=== PATIENT | female | born 1985 | race Caucasian/White ===

== ENCOUNTER 2018-05-22 09:31 | Observation (INO) ==
--- NOTE | 2018-05-22 09:50 | Emergency Department Note ---
Disposition Clinical Impression: Chest pain Qualifiers: Chest pain type: unspecified Qualified Code(s): R07.9 - Chest pain, unspecified Disposition: Admitted As Inpatient Condition: Good Referrals: Krystle Napoles FORENSIC ENGINEER [Advanced Practice Nurse] - Forms: ED Satisfaction Letter Time of Disposition: 12:29 Chest Pain HPI - General Chief Complaint: ED Chest Pain Stated Complaint: Chest Pain Time Seen by Provider: 05/22/18 09:38 Source: patient Mode of arrival: private vehicle Limitations: no limitations Vital Signs Reviewed: Yes Nursing Notes Reviewed: Yes - History of Present Illness HPI Narrative: Patient is a 32-year-old female with no notable past medical history taking no medications who comes in today after 1-1/2 months of chest pain that is substernal in nature with radiation to her left arm described as a tightness or a pressure with it is worse with movement and improves with rest and is an 8 out of 10 in severity. She states that she had a stress test yesterday which did not show any significant issues or change her EKG anyway. She is followed by cardiology because of her strong family history of normal testing and then subsequent heart catheterization showing blockages. She states that her grandmother and her mother has had very similar stories where they had chest pain which resulted in normal tests but then had abnormal catheterizations. She is not a smoker, she does not drink, and denies illicit drugs. She states that the last time her cholesterol was checked she thinks it was normal, she does not take any oral control and she does not have diabetes. Her surgical history is notable for a double hip repair when she was an for hip dysplasia, cholecystectomy, bilateral tubal ligation, exploratory laparotomy for abnormal uterine bleeding, uterine ablation, double hernia repair , several D&Cs, colonoscopy, and EGD. She has a strong family history of sudden cardiac from [place] with the youngest in her family being 30 years old when this happened, she also reports a family history of strokes, but no family history of bleeding disorders that she knows of. Recent testing includes 48 hour Holter monitor which did not show any arrhythmias, stress test which did not show any arrhythmias or signs of ischemia, echocardiogram which did not show any wall or valve abnormalities. She states that her panel flow machine operator has told her that she needs to go through all of these tests before she would be eligible for a heart catheterization. Additionally she reports that while she can normally get her chest pain to mary with rest, since she finished her stress test yesterday she has been unable to relieve her chest pain with rest, although she has not tried any [id number] remedies. Severity scale (1-10): 9 - Related Data Home Medications Medication Instructions Recorded Confirmed Buspirone HCl [Buspar] 10 mg PO BID 01/09/18 03/03/18 Sertraline [Zoloft] 50 mg PO DAILY 01/09/18 03/03/18 Previous Rx's Medication Instructions Recorded Ketorolac [Toradol] 10 mg PO Q6HR PRN #20 tablet 01/09/18 Oxycodone HCl/Acetaminophen 1 each PO Q6H PRN 7 Days #28 tablet 01/09/18 [Percocet 5-325 mg Tablet] Allergies Allergy/AdvReac Type Severity Reaction Status Date / Time No Known Allergies Allergy Verified 03/03/18 09:49 All systems ED: reviewed and negative except as stated. Review of Systems: As Per HPI Constitutional: Denies: fever, chills ENT ED: Denies: ear pain, throat pain Cardiovascular: Reports: chest pain, dyspnea on exertion, orthopnea. Denies: palpitations Respiratory: Reports: dyspnea. Denies: cough, wheezes, hemoptysis Gastrointestinal: Denies: abdominal pain, nausea, vomiting, diarrhea Genitourinary: Denies: urgency, dysuria Musculoskeletal: Denies: back pain Neurological: Denies: headache, weakness Chest Pain PMH - Past Medical History Medical history: Reports: asthma, other Surgical history: Reports: cholecystectomy, other Psychiatric history: Reports: anxiety SLEEPING BAG FILLER history: Reports: no SLEEPING BAG FILLER history, bilateral tubal ligation, other - Social History Smoking Status: Current every day smoker Alcohol use: Reports: none Drug use: Reports: none Physical Exam - General Limitations: no limitations General appearance: alert, in no apparent distress - Head Head exam: atraumatic, normocephalic - Eye Eye exam: Present: normal appearance, PERRL - ENT ENT exam: normal exam, normal oropharynx, mucous membranes moist - Neck Neck exam: Present: normal inspection, full ROM - Chest Chest inspection: Present: normal inspection, symmetric chest wall rise, tenderness (to palpation, sternal) - Respiratory Respiratory exam: Present: normal lung sounds bilaterally. Absent: respiratory distress, wheezes - Cardiovascular Cardiovascular exam: Present: regular rate, normal rhythm - Expanded Cardiovascular Exam Peripheral pulses: 2+: radial (R), radial (L), dorsalis pedis (R), dorsalis pedis (L) - Abdominal Exam Abdominal exam: Present: soft, Non-Tender - Back Exam Back exam: Present: normal inspection, full ROM - Neurological Exam Neurological exam: Present: alert, oriented X3 - Psychiatric Psychiatric exam: Present: normal affect, normal mood - Skin Skin exam: Present: warm, dry, intact Course Course Narrative: Pt will have a chest pain workup to include CXR, CBC, BMP, Mg, Phosphorus, troponin, EKG, 325 mg ASA, and SL nitro. Will consult cardiology for further management. - Reevaluation(s) Reevaluation #1: Pt's chest pain resolved after 3 nitroglycerin. Time: 12:27 Vital Signs Temperature 99.0 F 05/22/18 09:39 Pulse Rate 83 05/22/18 09:39 Respiratory Rate 18 05/22/18 09:39 Blood Pressure 147/87 05/22/18 09:39 O2 Sat by Pulse Oximetry 97 05/22/18 09:39 Temperature 99.0 F 05/22/18 09:46 Pulse Rate 87 05/22/18 11:13 Respiratory Rate 18 05/22/18 11:13 Blood Pressure 117/85 05/22/18 11:13 O2 Sat by Pulse Oximetry 99 05/22/18 11:13 Oxygen Delivery Oxygen Delivery Room Air Chest Pain - MDM Narrative Medical decision making narrative: Patient's chest x-ray failed to demonstrate acute cardiopulmonary process, EKG was normal, and troponin was negative. However given family history of fatal heart attack at 32, as well as mother's history of negative workup and then 99% occlusion on catheterization, as well as the fact that the patient is are not established with cardiology and they stated that the next step would be catheterization, the patient will need to be admitted. Cardiology has accepted the patient. I explained my findings to the patient, and I explained that I was worried about discharging her without having a catheterization, patient stated her understanding and agreement with the plan. Patient was given an opportunity to ask questions and all of her concerns were addressed. - Medical Records Medical records reviewed: Yes I reviewed the patient's medical records. - Lab Data Lab results reviewed: Yes I reviewed the patient's lab results. Result diagrams: 05/22/18 10:46 05/22/18 10:46 Lab Results 05/22/18 05/22/18 Range/Units 10:46 10:46 WBC 7.4 (4.3-11.1) K/mcL RBC 4.81 (3.82-4.97) M/mcL Hgb 14.0 (11.5-15.4) g/dL Hct 42.5 (35.3-44.9) % MCV 88.4 (83.0-100.0) fL MCH 29.1 (28.0-33.3) pg MCHC 32.9 (31.6-35.5) g/dL RDW 13.0 (11.5-14.5) % Plt Count 260 (140-400) K/mcL MPV 10.0 (9.4-12.4) fL Immature Gran % 0.4 (0-4) % Seg Neutrophils % 57.4 % Lymphocytes % 31.5 % Monocytes % 8.9 % Eosinophils % 1.1 % Basophils % 0.7 % Neutrophils # 4.3 (1.6-8.9) K/mcL Lymphocytes # 2.3 (0.6-4.6) K/mcL Monocytes # 0.7 (0.0-1.3) K/mcL Eosinophils # 0.1 (0.0-0.6) K/mcL Basophils # 0.1 (0.0-0.2) K/mcL Sodium 136 (136-145) mEq/L Potassium 4.2 (3.5-5.1) mEq/L Chloride 107 (98-107) mEq/L Carbon Dioxide 21 L (23-29) mEq/L BUN 14 (6-20) mg/dL Creatinine 0.68 (0.60-1.20) mg/dL Est GFR ( Amer) > 60 (> 60) Est GFR (Non-Af Amer) > 60 (> 60) BUN/Creatinine Ratio 21 (6-26) Glucose 97 (70-105) mg/dL Calculated Osmolality 282 (280-300) Calcium 9.3 (8.6-10.3) mg/dL Troponin I < 0.03 (< 0.04) ng/mL - Radiology Data Radiology results reviewed: Yes I reviewed the patient's radiology results. Chest X-Ray 05/22/18 10:16 IMPRESSION: No acute cardiopulmonary disease. D/ / Kimberly Grijalva MD / Kimberly Grijalva MD Interpreting Provider: Kimberly Grijalva MD - EKG Data EKG attestation: Yes I reviewed and interpreted this EKG. EKG results narrative: HR 88, Rhythm sinus, axis normal. NV 139, QRS 89, QTc 414. No evidence of ST elevation or depression. Heart Score - Score History: Moderately Suspicious EKG: Normal Age: Less than 45 Risk Factors: 1-2 risk factors Troponin: Less than normal limit HEART Score Total: 2 Attestation Statement - Attestation Attestation: I, Ezequiel Kennedy DO, examined this patient [id number] and my medical decision-making was reviewed with Dr. Stefani Dodge, Resident Physician. I agree with the documented findings, disposition and treatment plan as described except to the extent set forth below. Please see my progress notes for details.
[2018-05-22] MEDS ORDERED: Aspirin 325 MG TABLET PO ONE (10:34)
[2018-05-22 11:01] LABS: Basophils # 0.1 K/mcL (0.0-0.2); Basophils % 0.7 %; Eosinophils # 0.1 K/mcL (0.0-0.6); Eosinophils % 1.1 %; Hematocrit 42.5 % (35.3-44.9); Immature Granulocytes % 0.4 % (0-4); Lymphocytes # 2.3 K/mcL (0.6-4.6); Lymphocytes % 31.5 %; Mean Corpuscular HGB Conc 32.9 g/dL (31.6-35.5); Mean Corpuscular Hemoglobin 29.1 pg (28.0-33.3); Mean Corpuscular Volume 88.4 fL (83.0-100.0); Monocytes # 0.7 K/mcL (0.0-1.3); Monocytes % 8.9 %; Neutrophils # 4.3 K/mcL (1.6-8.9); Platelet Count 260 K/mcL (140-400); Red Blood Count 4.81 M/mcL (3.82-4.97); Segmented Neutrophils % 57.4 %
--- NOTE | 2018-05-22 11:01 | Emergency Department Note ---
Disposition Clinical Impression: Chest pain Disposition: Admitted As Inpatient Condition: Fair Referrals: Krystle Napoles CNP [Primary Care Provider] - Forms: ED Satisfaction Letter Time of Disposition: 12:21 General Adult HPI - General Chief complaint: ED Chest Pain Stated complaint: Chest Pain Time Seen by Provider: 05/22/18 09:38 Source: patient Mode of arrival: private vehicle Limitations: no limitations - History of Present Illness Pain Scale: 9 - Related Data Home Medications Medication Instructions Recorded Confirmed Buspirone HCl [Buspar] 10 mg PO BID 01/09/18 03/03/18 Sertraline [Zoloft] 50 mg PO DAILY 01/09/18 03/03/18 Previous Rx's Medication Instructions Recorded Ketorolac [Toradol] 10 mg PO Q6HR PRN #20 tablet 01/09/18 Oxycodone HCl/Acetaminophen 1 each PO Q6H PRN 7 Days #28 tablet 01/09/18 [Percocet 5-325 mg Tablet] Allergies Allergy/AdvReac Type Severity Reaction Status Date / Time No Known Allergies Allergy Verified 03/03/18 09:49 Constitutional: Denies: fever, chills ENT ED: Denies: ear pain, throat pain Cardiovascular: Reports: chest pain, dyspnea on exertion, orthopnea. Denies: palpitations Respiratory: Reports: dyspnea. Denies: cough, wheezes, hemoptysis Gastrointestinal: Denies: abdominal pain, nausea, vomiting, diarrhea Genitourinary: Denies: urgency, dysuria Musculoskeletal: Denies: back pain Neurological: Denies: headache, weakness Past Medical History - Past Medical History Medical history: Reports: asthma, other Surgical history: Reports: cholecystectomy, other Psychiatric history: Reports: anxiety QUILLER HAND history: Reports: no QUILLER HAND history, bilateral tubal ligation, other - Social History Smoking Status: Current every day smoker Smokeless Tobacco Status: No Alcohol use: Reports: none Drug use: Reports: none Physical Exam - General Limitations: no limitations General appearance: alert, in no apparent distress Course Vital Signs Temperature 99.0 F 05/22/18 09:39 Pulse Rate 83 05/22/18 09:39 Respiratory Rate 18 05/22/18 09:39 Blood Pressure 147/87 05/22/18 09:39 O2 Sat by Pulse Oximetry 97 05/22/18 09:39 Temperature 99.0 F 05/22/18 09:46 Pulse Rate 87 05/22/18 11:13 Respiratory Rate 18 05/22/18 11:13 Blood Pressure 117/85 05/22/18 11:13 O2 Sat by Pulse Oximetry 99 05/22/18 11:13 Oxygen Delivery Oxygen Delivery Room Air Medical Decision Making - Lab Data Result diagrams: 05/22/18 10:46 05/22/18 10:46 Lab Results 05/22/18 05/22/18 Range/Units 10:46 10:46 WBC 7.4 (4.3-11.1) K/mcL RBC 4.81 (3.82-4.97) M/mcL Hgb 14.0 (11.5-15.4) g/dL Hct 42.5 (35.3-44.9) % MCV 88.4 (83.0-100.0) fL MCH 29.1 (28.0-33.3) pg MCHC 32.9 (31.6-35.5) g/dL RDW 13.0 (11.5-14.5) % Plt Count 260 (140-400) K/mcL MPV 10.0 (9.4-12.4) fL Immature Gran % 0.4 (0-4) % Seg Neutrophils % 57.4 % Lymphocytes % 31.5 % Monocytes % 8.9 % Eosinophils % 1.1 % Basophils % 0.7 % Neutrophils # 4.3 (1.6-8.9) K/mcL Lymphocytes # 2.3 (0.6-4.6) K/mcL Monocytes # 0.7 (0.0-1.3) K/mcL Eosinophils # 0.1 (0.0-0.6) K/mcL Basophils # 0.1 (0.0-0.2) K/mcL Sodium 136 (136-145) mEq/L Potassium 4.2 (3.5-5.1) mEq/L Chloride 107 (98-107) mEq/L Carbon Dioxide 21 L (23-29) mEq/L BUN 14 (6-20) mg/dL Creatinine 0.68 (0.60-1.20) mg/dL Est GFR ( Amer) > 60 (> 60) Est GFR (Non-Af Amer) > 60 (> 60) BUN/Creatinine Ratio 21 (6-26) Glucose 97 (70-105) mg/dL Calculated Osmolality 282 (280-300) Calcium 9.3 (8.6-10.3) mg/dL Troponin I < 0.03 (< 0.04) ng/mL Attestation Statement - Attestation Attestation: I, Ezequiel Kennedy DO, examined this patient [id number] and my medical decision-making was reviewed with Dr. Stefani Dodge, Resident Physician. I agree with the documented findings, disposition and treatment plan as described except to the extent set forth below. Please see my progress notes for details. 32-year-old female presents emergency room for evaluation of midsternal chest discomfort pressure and pain. Radiates into her left arm. She has any trauma or injury. She does have a history of family cardiac disease that is caused multiple medical issues over the years. Patient did have a stress test and echo completed yesterday that were essentially negative after my review. She is denying shortness of breath fevers chills nausea vomiting or diarrhea. No headache no vision change. She has not traveled outside the country. She has not been started on a new medications. She has had this one time in the past that required nitroglycerin admission. Patient is concerning secondary to the family history as well as a description presentation since the stress test and echo that were completed yesterday. Patient will nitroglycerin aspirin provided here. Chest x-ray EKG CBC chemistry and troponin will be added on and then evaluation to be established. Consultation with cardiology will be provided once workup is completed. Patient is resting comfortably in the bed lungs are clear heart is regular. She does not have any specific signs or reproducible symptoms on palpation to the chest wall. Her abdomen is soft nontender nondistended with no guarding no rigidity and no peritoneal symptoms. She does not have any signs of pitting edema. She did walk into the emergency room under her own power. Disposition pending full workup and treatment course. See detailed documentation the physical exam, medical intervention, medical decision-making and disposition the resident physician's note. No critical care provider the patient's treatment course at this time. 1200 Labs are unremarkable this time. Patient had complete resolution of the chest discomfort after 3 nitroglycerin. Aspirin has been given. Cardiology was contacted and they recommended considering the patient's significant family history with cardiac disease as well as a presentation that she be admitted for further evaluation possible catheterization. Patient is otherwise stable at this time and no acute abnormalities. Hospitalist was contacted. Dr. begum reviewed the patient's case and care. No other recommendations or concerns. Patient does not require heparinization at this time will be followed closely and admission process will be established. Patient will be observed in emergency room until admission processes has been completed.
[2018-05-22] MEDS: Nitroglycerin 0.4 MG TAB.SUBL SL PRN ×3 (11:13→11:25)
[2018-05-22 11:17] LABS: BUN/Creatinine Ratio 21 (6-26); Blood Urea Nitrogen 14 mg/dL (6-20); Calcium 9.3 mg/dL (8.6-10.3); Carbon Dioxide 21 mEq/L (23-29); Chloride 107 mEq/L (98-107); Glucose 97 mg/dL (70-105); Osmolality,Calculated 282 (280-300); Potassium 4.2 mEq/L (3.5-5.1); Sodium 136 mEq/L (136-145); Troponin I < 0.03 ng/mL (< 0.04); eGFR For Non-African Americans > 60 (> 60)
--- NOTE | 2018-05-22 13:12 | Cardiology History & Physical ---
Date of Encounter: 05/22/18 Time of Encounter: 13:09 Assessment and Plan (1) Chest pain Current Visit: Yes Status: Acute The assessment and plan as outlined above was discussed with the patient and/or family members who expressed understanding and agreement. All questions were answered. C/o typical chest pain symptoms that are increasing in frequency and intensity. S/p prior hospital admit for chest pain with negative work-up. Recent out-pt negative cardiac work-up including normal holter monitor, ECG stress test, and preserved function on TTE yesterday. This admission with negative troponin. EKG showed SR with no ST changes. She does have a significant family history of CAD, premature CAD in Mother at age 52. Multiple non-first degree relatives with CAD or due to PA. Medical management vs [facility] discussed. She agrees to [facility] for further evaluation of Chest pain. R/B/A of [facility] reviewed and she agrees to proceed. Qualifiers: Chest pain type: unspecified Qualified Code(s): R07.9 - Chest pain, unspecified History of Present Illness Chief complaint: Chest pain HPI: Ms. Silva is a 32 year old female with past medical history significant for anxiety and asthma as a teenager who presents with the c/o chest pain ongoing since early April. She describes her pain as a heavy mid sternal pressure at times. She also c/o stabbing pain that radiates to her left shoulder and occasional aching in her chest. Symptoms often occur with activity and is relieved with rest. She completed a standard stress test yesterday. During her stress she developed chest pain. Her EKG did not show any ischemia. Once she returned home her chest pain continued to increase. She decided to come to the ED. Her chest pain was relieved with 3 SL NTG. She reports concern due to significant family history of CAD including her mother with stent placement at age 52. Prior cardiac testig: Standard stress test 05/21/18- Negative. TTE 05/21/18- EF 60%, no significant valvular disease. Holter 02/2018- NSR, no arrhythmias. CTA chest 04/2018-negative for PE. 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 Psychiatric history: anxiety - Past Surgical History Surgical History: cholecystectomy, other Additional surgical history: D&C, tubal - Social History Smoking Status: Current every day smoker Smokeless Tobacco Status: No Alcohol use: none Drug use: none - Family History Mother Adopted: No Living Status: Still Living Hx Family Cardiac Disorders: Yes (HTN) Hx Family Respiratory Disorders: No Hx Family Cancer: No Hx Family GI Disorders: No Hx Family Endocrine Disorder: No Hx Family Neuromuscular Disorders: No Hx Family Neurologic Disorders: No Hx Family HEENT Disorders: No Hx Family Autoimmune Disorders: No Medications and Allergies No Known Home Drugs 05/22/18 [History] 3 Allergy/AdvReac Type Severity Reaction Status Date / Time No Known Allergies Allergy Verified 05/22/18 12:39 All Systems Review: The remainder of the systems were reviewed and are negative Physical Examination Vital Signs, Last 4 Hours Temp Pulse Resp BP Pulse Ox 05/22/18 11:13 87 18 117/85 99 05/22/18 09:46 99.0 F 83 18 147/87 97 05/22/18 09:39 99.0 F 83 18 147/87 97 Results 05/22/18 10:46 05/22/18 10:46 Lab Results 05/22/18 05/22/18 10:46 10:46 WBC 7.4 Hgb 14.0 Hct 42.5 Plt Count 260 Sodium 136 Potassium 4.2 Chloride 107 Carbon Dioxide 21 L BUN 14 Creatinine 0.68 Glucose 97 Calcium 9.3 Troponin I < 0.03 - Imaging and Cardiology Stress Test: report reviewed Echo: report reviewed - EKG Interpretation EKG results cardiology: personally reviewed
[2018-05-22] MEDS ORDERED: Naloxone 0.4 MG/ML INJ IVP PRN (13:31)
[2018-05-22] MEDS ORDERED: ISOVUE-370 200 ML INFUS..BTL IV ONE (15:21)
[2018-05-22] MEDS ORDERED: 0.9 % Sodium Chloride 1,000 ML ONE ×2 (15:21→17:18)
[2018-05-22] MEDS ORDERED: Heparin 1,000 UNITS/500 mL 500 ML ONE (15:21)
[2018-05-22] MEDS ORDERED: *HR* Heparin 10,000 UNIT/10 ML VIAL ONE (15:21)
[2018-05-22] MEDS ORDERED: Nitroglycerin 1,000 MCG/10 ML VIAL IV ONE (15:21)
[2018-05-22] MEDS ORDERED: *HR* Midazolam HCl 2 MG/2 ML VIAL ONE ×2 (17:18→17:34)
--- NOTE | 2018-05-22 17:29 | Pre-Sedation Evaluation ---
Pre-sedation evaluation - Pre-sedation checklist Date of procedure: 05/22/18 Procedure: LHC Recent Vitals: Last Vital Signs Temp 98.8 F 05/22/18 16:15 Pulse 73 05/22/18 16:15 Resp 16 05/22/18 16:15 BP 109/71 05/22/18 16:15 Pulse Ox 97 05/22/18 16:15 H&P (including ROS) documented in medical record: Yes Previous reaction to sedatives/anesthetics: No Dietary Status: NPO after Midnight Airway Assessment: Patient can open mouth completely, TMJ function normal Dentition: No loose teeth or bridges Possible difficult airway: No ASA Classification *see protocol: CLASS III-Severe systemic disease Plan of Care: Pt appropriate candidate for procedure/moderate/conscious sedation , Risks/benefits of procedure/sedation discussed w/ patient/family, If not NPO; Risk of intake outweiged by necessity to perform procedure Cardiac Registry (Cardio Only) - Functional Capacity Functional Capacity: >=4 METS without symptoms - Clincal Frailty Scale Clinical Frailty Scale: Well (PT seen and examined, chart reviewed, risks and benefits of planned LHC discussed,pt elects to proceed.)
--- NOTE | 2018-05-22 18:11 | Invasive Diagnostic Lab Proc ---
Name: Isabelle Silva Date of Study: 05/22/2018 Date: 1985 Ht: 63.0in Medical Record#: [id number] Age: 32 Wt: 211.64lb Gender: Female BSA: 1.98 Order #: [id number] BMI: 37.5 Physicians Procedure Physician: Farzad Coffman DO Referring MD: Referring MD: Staff Name Position Time In Carlos Haney RN Manager Finance 05:17 PM Kita Garcia RT Scrub 05:17 PM Cruz Davis RT (R) Monitor 05:17 PM Indications Indication Unstable Angina Procedures Performed Procedure L HRT ARTERY/VENTRICLE ANGIO Pre-Procedure Checklist Informed consent is complete signed and on chart. H&P is on chart. ID band is on and ID verified with patient. Patient NPO for procedure The procedure was described for the patient and questions were answered. Blood Pressure: 118/77 ECG is on chart. Rhythm: NSR Plan of Care Patient will tolerate the procedure without complications. Adequate level of comfort will be maintained. Hemodynamics will remain stable Patient will recover from procedure without complications. Respiratory function will be maintained. Cardiac rhythm will remain stable. Patient temperature will be maintained. Patient and/or family have verbalized understanding of the procedure. Patient Education Chief Complaint/Reason for Test: Cardiac Cath Developmental Category: Adult (18-64 years) Developmentally Appropriate for Age: Yes Learning Barriers: None Education Needs: Procedure Education Method: Verbal Information Taught: Cardiac Cath Educational Evaluation: Able to repeat information Intravenous Access Time IV Size Location DC'd Fluid/Drip Rate Units RN 05:15 PM 20g 1 1/4" Patent On Arrival Lt Hand 0.9NaCl 25 ml/hr Carlos Haney RN Allergies NO KNOWN DRUG ALLERGIES Vital Signs Time BP (mmHg) HR (bpm) O2 Sat. RR (bpm) LOC 05:16 PM 118 / 77 68 98 % 14 5 = Fully awake and oriented or at pre-proc level 05:17 PM / % 5 = Fully awake and oriented or at pre-proc level 05:17 PM / % 4 = Oriented but drowsy 05:32 PM / % 4 = Oriented but drowsy 05:23 PM 140 / 87 83 99 % 29 05:27 PM 130 / 80 92 100 % 25 05:32 PM 130 / 83 93 100 % 27 05:37 PM 126 / 89 99 100 % 21 05:43 PM 127 / 70 96 100 % 16 05:47 PM 133 / 82 84 % 13 05:52 PM 134 / 81 84 99 % 17 05:57 PM 130 / 85 85 99 % 21 Procedural Medications Time Medication Dose Units Method Given By 05:21 PM Oxygen 2 L/min nasal cannula Carlos Haney RN 05:24 PM Versed 2 mg Intravenous Carlos Haney RN 05:34 PM Lidocaine 2% 10 ml Subcutaneous Farzad Coffman DO 05:35 PM Versed 1 mg Intravenous Carlos Haney RN 05:35 PM Oxygen 2 L/min nasal cannula Carlos Haney RN ASA Classification: CLASS II- Mild systemic disease (i.e. well-controlled diabetes, hypertension, asthma, cigarette smoking) Evan Score Preprocedure Postprocedure Activity 2- Moves 4 extremities sustained head lift Activity 2- Moves 4 extremities sustained head lift Circulation 2- SBP +/= 20 points of pre-anesthetic level Circulation 2- SBP +/= 20 points of pre-anesthetic level Consciousness 2- Awake and alert oriented x 3 Consciousness 2- Awake and alert oriented x 3 O2 Saturation 2- Able to maintain O2 satruation of 92% on room air O2 Saturation 2- Able to maintain O2 satruation of 92% on room air Respiratory 2- Able to deep breathe and cough well Respiratory 2- Able to deep breathe and cough well Total Score 10 Total Score 10 Contrast Agent: Isovue Diagnostic Contrast: 45 ml Total Contrast: 45 ml Fluoro Dose: 2651 mGy Procedure Log Time Note Enter By 04:17 PM CathStat 05:16 PM Pt arrived to [facility] 2 at 17:16 tsites 05:17 PM Patient charges- Angio tray pack, Navilyst 3mm J, Pulse Oximetry and ACIST tubing and transducer tsites 05:17 PM Carlos Haney RN Position: Manager Finance Time in: 17:17 tsites 05:17 PM Kita Garcia RT Position: Scrub Time in: 17:17 tsites 05:17 PM Cruz Davis RT (R) Position: Monitor Time in: 17:17 tsites 05:17 PM Case Delayed No tsites 05:17 PM Time: 17:17 Patient comfortable and pain free: Yes tsites 05:17 PM Time: 17:17LOC: 5 = Fully awake and oriented or at pre-proc level tsites 05:17 PM Clinical Presentation: Unstable angina tsites 05:17 PM Physician arrived 17:17 tsites 05:17 PM ASA Class CLASS II- Mild systemic disease (i.e. well-controlled diabetes, hypertension, asthma, cigarette smoking) tsites 05:17 PM Meet and greet completed tsites 05:17 PM Sign in performed according to hospital policy. Informed consent was obtained. tsites 05:18 PM Procedure start 17:17 tsites 05:20 PM Hair removed from procedure site in procedure lab using clippers. Bilateral groin prepped with Chloraprep by Kita Garcia, then patient was draped. Skin intact. tsites 05:21 PM Time: 17:21 Oxygen on at 2 L/min per nasal cannula by Carlos Haney RN tsites 05:21 PM Vitals capture started with the following parameters, Patient=Adult, Interval=5 min, Initial Wqsjkbvm=681 mmHg, Deflation Rate=5 mmHg, Cuff placed on Right Arm 05:22 PM Recorded ECG: HR=98 Condition=Condition 1 05:23 PM HR=83 bpm, COME=552/87 mmhg, SpO2=99.0 %, Resp=29 B/min 05:24 PM Time: 17:24 Versed 2 mg Intravenous Given by Carlos Haney RN tsites 05:27 PM HR=92 bpm, XUOG=419/80 mmhg, IfX8=488.0 %, Resp=25 B/min 05:32 PM HR=93 bpm, ZWNU=335/83 mmhg, McI0=742.0 %, Resp=27 B/min 05:32 PM Pressure channel 2 zeroed. 05:32 PM Time: 17:17 Patient comfortable and pain free: Yes tsites 05:32 PM Time: 17:17LOC: 4 = Oriented but drowsy tsites 05:34 PM Time out was performed according to hospital policy. Conscious sedation and anesthesia was achieved (see medication log with in this report above) tsites 05:34 PM Time: 17:34 10 ml Lidocaine 2% to right groin Subcutaneous Given by Farzad Coffman DO tsites 05:35 PM Time: 17:35 Versed 1 mg Intravenous Given by Carlos Haney RN tsites 05:35 PM Time: 17:35 Oxygen on at 2 L/min per nasal cannula by Carlos Haney RN tsites 05:37 PM HR=99 bpm, GZCD=437/89 mmhg, UhB9=657.0 %, Resp=21 B/min, EtCO2=35 mmHg 05:37 PM Micro-Introducer Kit utilized for sheath placement tsites 05:38 PM Access obtained by percutaneous puncture. 6Fr 10cm Terumo [place] sheath placed in right Femoral artery. [id number] tsites 05:38 PM 0.035 145cm Navilyst 3mmJ wire [id number] tsites 05:39 PM 5Fr FR 4 catheter inserted over the wire [facility] tsites 05:39 PM Catheter crossed the aortic valve and was selectively placed in the left ventricle. Pressures recorded on pullback for left heart catheterization. tsites 05:39 PM hand injetced LV gram tsites 05:39 PM Recorded Pressure: LV, HR=86, Condition=Condition 1 (Left Ventricle) LV 89/-7/-7 05:40 PM Recorded Pressure: LV, Ao, HR=86, Condition=Condition 1 (Left Ventricle) LV 113/-5/2, (Aorta) Ao ?/?/? 05:40 PM RCA angiography performed in multiple views. tsites 05:41 PM Catheter removed tsites 05:41 PM 5Fr FL 4 catheter inserted over the wire DN tsites 05:42 PM LCA angiography performed in multiple views. tsites 05:42 PM Vitals capture started with the following parameters, Patient=Adult, Interval=5 min, Initial Tzwopkta=974 mmHg, Deflation Rate=5 mmHg, Cuff placed on Right Arm 05:42 PM Coronary Dominance: right tsites 05:43 PM Recorded Pressure: Ao, HR=96, Condition=Condition 1 (Aorta) Ao 102/64/82 05:43 PM HR=96 bpm, HOID=343/70 mmhg, TdI1=736.0 %, Resp=16 B/min, EtCO2=35 mmHg 05:43 PM hand injected rt femoral angiogram tsites 05:44 PM Catheter removed tsites 05:44 PM Procedure completed at 17:44 05/22/2018 tsites 05:44 PM Sign out completed: Radiation Dose 241.08 mGy, 2651.22 cGy/cm2 Fluoro Time: 1.7 Isovue 370 - 200ml contrast 45 ml given by Farzad Coffman DO. Complications: None. 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 Cardiac Rehab Consult needed: Confirmed administered medications: Yes tsites 05:45 PM Isovue 370 - 200ml,1 Bottle(s) used. tsites 05:46 PM Arterial site held using manual compression and V+ Pad by Kita Garcia tsites 05:46 PM Estimated Blood Loss: less than 20cc tsites 05:46 PM Post ECG NSR tsites 05:46 PM Post Blood Pressure 127/70 tsites 05:46 PM 17:46 Post Pulses Bilateral DP & PT 2+ tsites 05:47 PM Information taught Cardiac Cath tsites 05:47 PM Education needs Procedure, Plan of Care, and Disease Process tsites 05:47 PM Learning barriers :Sedated tsites 05:47 PM Education Methods Verbal tsites 05:47 PM HR=84 bpm, KQVP=969/82 mmhg, Resp=13 B/min 05:47 PM Education evaluation Needs further instruction tsites 05:47 PM Time: 17:32LOC: 4 = Oriented but drowsy tsites 05:47 PM Time: 17:32 Patient comfortable and pain free: Yes tsites 05:47 PM Delay to floor No tsites 05:47 PM Complications: None tsites 05:48 PM Family placed in consult room. tsites 05:50 PM Report given to mino DAVENPORT Pt taken to 3B Room #64. 17:49 tsites 05:52 PM HR=84 bpm, BGKW=358/81 mmhg, SpO2=99.0 %, Resp=17 B/min 05:57 PM HR=85 bpm, LJLV=448/85 mmhg, SpO2=99.0 %, Resp=21 B/min 06:00 PM Arterial site held using manual compression and V+ Pad for 15 minutes by Kita Garcia tsites 06:00 PM Site status No bleeding/hematoma - Rt Groin as reported by Kita Garcia at 18:00 tsites 06:00 PM Opsite applied tsites 06:00 PM Vitals capture stopped. 06:02 PM Time: 17:47 Patient comfortable and pain free: Yes tsites 06:02 PM Patient out of room: 18:02 tsites Complications Complication None None Hemodynamics Pressures Site Systolic/A Wave Diastolic/V Wave Mean LV 89 -7 -7 LV 113 -5 2 AO AO 102 64 82 Post Procedure Information Blood Pressure: 127/70 mmHg Rhythm: NSR Post procedural instructions were given Closure Device Time Device Success/Fail 05/22/2018 5:46:00 PM Manual Compression Successful Site Checks Time Location Status Staff Sheath In? Note 06:00 PM Rt Groin No bleeding/hematoma Kita Garcia RT Pulses Time Site Pre-Procedure Post-Procedure Note 05/22/2018 5:15:00 PM Bilateral DP & PT 2+ 5:46:00 PM Bilateral DP & PT 2+ Updated by [facility], RT (R) on 05/22/2018 6:03:00 PM [facility], RT electronically signed on 05/22/2018 6:03:30 PM with status of Final
[2018-05-22] MEDS: 0.9 % Sodium Chloride 1,000 ML IVC SCH (18:22)
[2018-05-23] MEDS: 0.9 % Sodium Chloride 1,000 ML IVC SCH (01:00)
--- NOTE | 2018-05-23 09:47 | Discharge Summary ---
Orders not resulted at time of discharge: Pending orders 05/22/18 13:34 CL Cardiac Catheterization [CL] Routine Date of Encounter: 05/23/18 Time of Encounter: 09:43 - Discharge Diagnosis (1) Chest pain Priority: Primary Status: Acute Qualifiers: Chest pain type: unspecified Qualified Code(s): R07.9 - Chest pain, unspecified - Hospital Course Hospital course: Ms. Silva is a 32 year old female with past medical history of anxiety who presented with persistent chest pain. She had a recent stress test that was negative for ischemia on 05/22/2018 and TTE that showed normal EF. Due to persistent chest pain despite nitroglycerin and family history of CAD she was recommended for LHC. There was no complications from her procedure. LHC revealed normal coronaries. She is now ready to be discharged home. She is chest pain free. Recommended to follow with PCP to rule out non-cardiac causes of chest pain. Patient agrees with plan. - Time Spent with Patient Total time spent providing and/or coordinating discharge services: 30 min - Discharge Medications Home Medications: No Known Home Drugs 05/22/18 [History] Allergies/Adverse Reactions: 3 Allergy/AdvReac Type Severity Reaction Status Date / Time No Known Allergies Allergy Verified 05/22/18 12:39 Date of admission: 05/22/18 13:15 Primary care physician: Krystle Napoles CNP Consults: None Discharging clinician: Julio Cesar Doss Anticipated date of discharge: 05/23/18 Physical Examination Vital Signs, Last 4 Hours Temp Pulse Resp BP Pulse Ox 05/23/18 07:12 98.4 F 83 16 117/72 98 General: Conversant, No Apparent Distress HEENT: Atraumatic, Normocephaly, Mucus Membranes Moist Neck: No JVD, Normal carotid pulses Cardiac: Reg Rate and Rhythm, Normal S1 and S2, No Murmur Lungs: Normal Breath Sounds, No Wheeze, Rales, Rhonchi Neuro: Alert and responsive, No focal deficits noted Abdomen: Soft, Non-Tender Skin: No rashes noted on visualized skin Musculoskeletal: No Chest Wall Tenderness Extremities: No Clubbing, No Cyanosis, No Edema, Normal Pulses, Other (No redness or ecchymosis at right femoral access site. ) - Patient Status Disposition: Home, Self-Care Condition: Good Functional capacity at discharge: independent ambulation Overall status at discharge: patient is progressing back to baseline - Discharge Instructions Follow Up With: Krystle Napoles CNP [Primary Care Provider] - Additional Instructions: RISK FACTORS: STOP SMOKING: If you smoke, STOP. Smoking or tobacco use significantly increases your risk of heart disease because nicotine causes the arteries to narrow or constrict. It also causes fats to stick to the artery. Your chances of having a heart attack are greatly increased if you continue to smoke. For more information, call the education line for smoking cessation 2-905-[id number] EAT A LOW FAT/CHOLESTEROL/SODIUM DIET: This diet may help reduce your chances of having a heart attack. LIFTING: Avoid lifting anything more than 10 pounds for 5-7 days Prior to straining, laughing, sneezing and/or coughing, apply manual pressure directly over insertion site. ACTIVITY: You may walk or climb stairs as tolerated You can resume sexual activity as tolerated In general, you are encouraged to engage in a minimum of 30 minutes or more of moderate intensity physical activity, such as brisk walking, daily or at least 3 -4 times weekly BATHING Do not submerge the site into water (bath tub, hot tub, swimming pool) for 1 week. This can be a source for infection into the blood stream. You may shower after 24 hours SITE CARE: After 24 hours, you may remove the dressing and leave the site open to air. Keep the site clean and dry. Clean gently and pat dry. You can expect bruising and tenderness that gradually resolve within a week or two. Return to work as instructed per your physician Resume driving as instructed per physician Keep all scheduled follow up appointments Resume medications as instructed IMPORTANT: If prescribed a Platelet Aggregation Inhibitor such as, Plavix, Brilinta or Effient: Duration of therapy is minimum one year These medications are often used in combination with Aspirin in prevention of future heart attacks Never discontinue unless consult with your Shotblaster STROKE (CVA) Risk factors for a stroke are: Age, cigarette smoking, diabetes, excessive alcohol consumption, family history, high blood pressure, overweight, physical inactivity, prior stroke, heart attack, diagnosis of carotid artery stenosis or other artery disease. Warning signs: Sudden numbness or weakness of the face, arm or leg; especially on one side of the body, sudden confusion, trouble speaking or understanding, sudden trouble seeing in one or both eyes, sudden trouble walking, dizziness, loss of balance or coordination, sudden severe headache with no cause. Call 911 or go to the Emergency Room. CONGESTIVE HEART FAILURE: If you have been diagnosed with Congestive Heart Failure (CHF) and your symptoms return, make an appointment with your physician Weigh yourself daily. Notify your physician if you have a weight gain of two or more pounds in one day or five or more pounds in one week. If you experience any difficulty breathing, please call 911 BLEEDING: Although the risk of bleeding is minimal, it can happen. If you have any bleeding from the site, apply firm pressure above the puncture site for 10-15 minutes. If the bleeding does not stop, continue manual pressure and call 911 Contact your physician if: You develop a fever greater than 101 degrees Fahrenheit Your site becomes reddened or has any drainage You have an increase in pain or burning at the site or if a large knot forms at the site. If you experience chest pain, shortness of breath, dizziness, or extreme tiredness, stop the activity and rest. Please notify your physicians office if you experience any of these symptoms and they are not relieved by rest please call 911! - Diet and Activity Activity: increase activity as tolerated - VTE Reasons for not Prescribing Prophylaxis: Treatment not Indicated - Low risk for VTE
[2018-05-23 11:32] VITALS: BP 125/76
--- NOTE | 2018-05-24 10:42 | Electrocardiograph Report ---
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
--- NOTE | 2018-05-24 10:52 | Electrocardiograph Report ---
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
== END 2018-05-23 12:22 | disposition home or self-care (01) ==
LOC: 3BNU 09:31 → EMEROOARM 09:31 → 3BNU 14:04
PROVIDERS: ADMIT Internal Medicine; ATTEND Internal Medicine